=== PATIENT | female | born 1955 | race Native Hawaiian/Other Pacific Islander ===

== ENCOUNTER 2018-11-22 19:48 | Emergency (ER) | payer OTHER ==
[~2018-11-22] VITALS: Ht 170.2 cm; Wt 94.3 kg
[2018-11-22 19:55] VITALS: TEMP 97.4
[2018-11-22 20:47] LABS: PLATELET COUNT 306 K/uL (152-353)
[2018-11-22 20:51] LABS: POTASSIUM 3.5 mmol/L (3.6-5.2); SODIUM 142 mmol/L (136-145)
[2018-11-22 22:40] VITALS: BP 168/48
== END 2018-11-22 22:48 | disposition home or self-care (01) ==
LOC: ED 19:48
PROVIDERS: Emergency Medicine
DX: R06.02 Shortness of breath (principal); J40 Bronchitis, not specified as acute or chronic; R00.0 Tachycardia, unspecified; I45.81 Long QT syndrome
CPT/HCPCS: 80053; 82550; 82553; 84484; 85027; 87502; 93005; 94664; 96374; 99284; J2930

== ENCOUNTER 2020-12-23 10:40 | Emergency (ER) | payer OTHER ==
[2021-01-02 08:37] LABS: PLATELET COUNT 297 K/uL (152-353); POTASSIUM 4.2 mmol/L (3.6-5.2)
== END 2020-12-23 12:19 | disposition home or self-care (01) ==
LOC: ED 10:40
PROVIDERS: Family Medicine
DX: N28.9 Disorder of kidney and ureter, unspecified (principal); R10.84 Generalized abdominal pain
CPT/HCPCS: 36415; 80053; 81000; 85027; 99283

== ENCOUNTER 2021-02-06 10:01 | Outpatient (CLI) | payer OTHER | END 2021-02-06 21:43 | disposition home or self-care (01) | LOC: RESP 10:01 | PROVIDERS: ATTEND Nurse Practitioner | DX: I35.0 Nonrheumatic aortic (valve) stenosis (principal) ==